=== PATIENT | male | born 1945 | race Caucasian/White ===

== ENCOUNTER 2016-05-25 07:54 | Day surgery (SDC) | payer MEDICARE, OTHER ==
[~2016-05-25] VITALS: Ht 177.8 cm; Wt 127.0 kg
[~2016-05-25 07:54] MED LIST: DICLOFENAC SODI50 M1 PO; GABAPENTIN300 MG PO; GLUCOSAMINE CHO1 CAP PO; MECLIZINE 25MG25 MG PO; MOTRIN IB200 MG PO; NORVASC 10MG. T10 MG PO; TRAMADOL 50MG T50 MG PO
[2016-05-25 08:24] VITALS: BP 148/77
[2016-05-25 08:49] VITALS: BP 148/77; BP 181/88
--- NOTE | 2016-05-25 08:56 | Procedure Note ---
Procedure detail Date of procedure: 05/25/16 Anesthesiologist: Jaycob Starkey CRNA Complications: None Pre-procedure diagnosis: Lumbar stenosis, degenerative disc disease of the lumbar spine, disc bulge Post-procedure diagnosis: Same Indications for procedure: Very pleasant obese 70-year-old white male he comes our pain clinic today for initial consultation regarding chronic low back pain he describes as constant, dull, aching. Patient also complains of LEFT hip and leg radiculopathy symptoms to the foot. Patient currently taking tramadol 50 mg 1 by mouth 3 times a day as well as diclofenac 75 mg 1 by mouth twice a day from his PCP. Patient reports the pain medicine does decrease his pain a 50 percent. Patient's lumbar MRI shows multilevel degenerative disc disease as well as multilevel lumbar disc bulge. Lumbar spinal stenosis. We will start today with lumbar epidural steroid injection have explained the risks and benefits of the procedure to the patient and he wishes to continue. Procedure detail: Procedure: Lumbar epidural steroid injection under fluoroscopy Informed consent was obtained and the risks and benefits of the procedure were explained to the patient. The patient was taken to the procedure room and noninvasive monitors placed, including noninvasive blood pressure cuff and pulse oximeter. The back was viewed using C-arm Fluoroscopy and prepped using Betadine as a cleansing solution and the L4-L5 interspace was palpated. Skin and subcutaneous tissues were anesthetized using lidocaine 1.5% and a 25-gauge needle. After this, an 18-gauge Touhy epidural needle was placed into the L4-L5 interspace and advanced using fluoroscopic guidance and loss of resistance to air until the epidural space was encountered. After confirmation of needle placement in the epidural space, with dye, a solution containing lidocaine 1.5%, 4 mL and Depo-Medrol 80 mg were incrementally injected into the lumbar epidural space. The patient tolerated the procedure well with no complications. The patient was observed in the Pain Clinic and then discharged home neurologically intact. Plan and disposition: We will follow up with this patient in our clinic and reassess his symptoms at that time at 0855
[2016-05-25 09:19] VITALS: BP 156/70
== END 2016-05-25 09:21 | disposition home or self-care (01) ==
LOC: PM 07:54
PROC: 3E0R33Z Introduction of Anti-inflammatory into Spinal Canal, Percutaneous Approach (ICD-10-PCS; principal; 2016-05-25)
PROC: 3E0R3BZ Introduction of Anesthetic Agent into Spinal Canal, Percutaneous Approach (ICD-10-PCS; 2016-05-25)
DX: M51.36 Other intervertebral disc degeneration, lumbar region (principal); M48.06 Spinal stenosis, lumbar region
CPT/HCPCS: J1040; Q9966

== ENCOUNTER → 2016-08-10 | Outpatient (CLI) | payer MEDICARE, OTHER ==
--- NOTE | 2016-08-11 10:00 | RADIOLOGY REPORT PS360 ---
ECHO ADULT PROCEDURE: INDICATIONS FOR THE TEST: Chest pain COPD Heart Murmur Tobacco Smoking Palpitations Fatigue Syncope EdemaX Hypertension Diabetes Mellitus Rheumatic Fever SOBXXDOEXObesityXHyperlipidemia Family History HD Additional History PATIENT INFORMATION HEIGHT: 70 WEIGHT:278 GENDER: Male B/P:140/78 2-D/M-MODE INTERPRETATION: 2-D MEASUREMENTS OBSERVED VALUES IN CMS Right Ventricular Dimension (RVDd) 1.6 Interventricular Septum (Thickness)(IVsd) 1.2 Left Ventricular Internal Dimensions(LVIDd) 5.2 Left Ventricular Posterior Wall (Thickness)(LVPWd) 1.0 Aortic Root 4.3 Aortic Cusp Separation 2.3 Left Atrial Dimensions (LAD) 3.0 2D 1. Left atrium is qualitatively mildly enlarged, left ventricle is normal size, left ventricle wall thickness is upper limit of the normal, there is preserved left ventricular systolic function, visually estimated ejection fraction of 55% with no obvious regional wall motion abnormality. 2. The right atrium and right ventricle are normal size and contractility. 3. The aortic valve is minimally thickened and fibrosed, there is no aortic stenosis 4. The mitral valve leaflets are minimally thickened, 5. The pulmonic valve is not well visualized. 6. The tricuspid valve is structurally normal. DOPPLER INTERROGATION: The aortic mitral and tricuspid valvular presence of trace mitral and tricuspid regurgitation, tricuspid regurgitant jet velocity insufficient for calculation of the right ventricular systolic pressure., Grade 1 diastolic dysfunction seen without tissue Doppler evidence of raised left atrial pressure. CONCLUSION: 1. Mildly enlarged left atrium, normal left ventricular size, visually estimated ejection fraction 55% with no obvious regional wall motion abnormality, grade 1 diastolic dysfunction seen without Doppler evidence of raised left atrial pressure. 2. Trace mitral and tricuspid regurgitation. 3. No significant pericardial effusion noted.
== END ==
LOC: RT 09:57
DX: I10 Essential (primary) hypertension (principal); R06.09 Other forms of dyspnea; R22.43 Localized swelling, mass and lump, lower limb, bilateral

== ENCOUNTER → 2017-02-02 | Outpatient (CLI) | payer MEDICARE, OTHER ==
--- NOTE | 2017-02-02 11:47 | RADIOLOGY REPORT PS360 ---
HIP LT 2-3V W/PELVIS IF PERFOR HISTORY: LT HIP PAIN ORDERING PHYSICIAN: REY MARY MD PATIENT AGE: 71 years COMPARISON: August 27, 2016 FINDINGS: There are severe osteoarthritic changes of the left hip. Compared to the previous exam there has been interval collapse of the femoral head with osteosclerosis with increasing osteophyte formation and sclerosis of the acetabulum and mild foreshortening of the left femoral head. The right hip as well. IMPRESSION: Interval development of collapse of the left femoral head with increasing osteophyte formation and osteoarthritic change of the left hip.
== END ==
LOC: RAD 10:14
DX: M25.552 Pain in left hip (principal)